=== PATIENT | female | born 1940 | race Caucasian/White ===

== ENCOUNTER 2017-05-03 17:42 | Emergency (ER) | payer OTHER ==
[~2017-05-03] VITALS: Ht 172.7 cm; Wt 89.8 kg
[~2017-05-03 17:42] MED LIST: ALBU0.63 NEB; AZIT500T PO; CARV12.52 PO; CARV3.122 PO; CARV6.252 PO; FLUT1DIS3 INH; HYDR25TA6 PO; LISI-170 PO; LISI1TAB7 PO; LISI40TA PO; MELO-184 PO; METO200T3 PO; PRED5TAB PO; TIOT18CA INH
[2017-05-03] MEDS ORDERED: ONDANSETRON ODT 4 MG ONE (18:26)
[2017-05-03] MEDS ORDERED: ONDANSETRON ODT 4 MG PO ONE (18:30)
[2017-05-03] MEDS ORDERED: HYDR25TA6 PO (19:02)
[2017-05-03] MEDS ORDERED: CARV12.52 PO (19:04)
[2017-05-03 19:21] LABS: BLOOD UREA NITROGEN 24 mg/dL (7-18)
[2017-05-03 19:26] LABS: ASPARTATE AMINO TRANSFERASE 15 U/L (15-37)
[2017-05-03 19:27] LABS: IS PT STATUS REG ER OR PRE ER? YES
[2017-05-03 20:09] VITALS: BP 124/46
== END 2017-05-03 20:12 | disposition home or self-care (01) ==
LOC: ED 20:06
DX: J44.9 Chronic obstructive pulmonary disease, unspecified (principal); R11.0 Nausea; I10 Essential (primary) hypertension; F41.9 Anxiety disorder, unspecified
CPT/HCPCS: 36415; 71010; 80053; 84484; 85025; 93005; 99285; Q0162

== ENCOUNTER 2017-05-26 10:13 | Day surgery (SDC) | payer OTHER ==
[2017-05-23 12:47] VITALS: BP 128/75
[~2017-05-26] VITALS: Ht 172.7 cm; Wt 87.0 kg
[~2017-05-26 10:13] MED LIST changes: +BUPIVACAINE/PF 0.5% ONE; +EPINEPHRINE 1 MG/ML, 1ML ONE; +FLUT12HF3 IH; +NITR100C PO; +ONDA4TAB10 PO; +RANI150T8 PO
[2017-05-26] MEDS ORDERED: PROPOFOL 10 MG/ML, 20ML ONE (10:31)
[2017-05-26] MEDS ORDERED: CEFAZOLIN 1,000 MG ONE (10:31)
[2017-05-26] MEDS ORDERED: DEXAMETHASONE 4 MG/ML, 1ML ONE (10:31)
[2017-05-26] MEDS ORDERED: KETOROLAC 30 MG/1 ML ONE (10:31)
[2017-05-26] MEDS ORDERED: ONDANSETRON 2MG/ML, 2ML ONE (10:31)
[2017-05-26] MEDS ORDERED: GLYCOPYRROLATE 0.2MG/1ML ONE (10:31)
[2017-05-26] MEDS ORDERED: ALBUTEROL SULFATE 200 PUFFS/8.5 GR INH ONE (10:31)
[2017-05-26] MEDS ORDERED: LACTATED RINGERS 1,000 ML IV SCH (10:49)
[2017-05-26 11:07] VITALS: BP 128/75
[2017-05-26] MEDS ORDERED: FENTANYL PF 100 MCG/2ML ONE ×2 (11:53→13:15)
[2017-05-26] MEDS ORDERED: ACETAMINOPHEN 325 MG TABLET PO PRN (12:00)
[2017-05-26] MEDS ORDERED: PROMETHAZINE 25 MG/ML, 1ML IV PRN (12:00)
[2017-05-26] MEDS ORDERED: ONDANSETRON 2MG/ML, 2ML IVPush PRN (12:00)
[2017-05-26] MEDS ORDERED: OXYcodone 5 MG/5 ML ORAL.SOL UDC PO PRN (12:00)
[2017-05-26] MEDS ORDERED: LABETALOL 5MG/ML, 20ML IV PRN (12:00)
[2017-05-26] MEDS ORDERED: HYDROcodone/APAP 7.5-325MG/15ML UDC PO PRN (12:00)
[2017-05-26] MEDS ORDERED: FENTANYL PF 100 MCG/2ML IV PRN (12:00)
[2017-05-26] MEDS ORDERED: hydrALAzine 20 MG/ML, 1ML IV PRN (12:00)
[2017-05-26] MEDS ORDERED: EPHEDRINE 50 MG/ML, 1ML IVPush PRN (12:00)
[2017-05-26] MEDS ORDERED: HYDROmorphone 1 MG/ML, 1ML IV PRN (12:00)
== END 2017-05-26 16:00 | disposition home or self-care (01) ==
LOC: OUT 10:13
PROVIDERS: ATTEND Surgery
DX: K80.10 Calculus of gallbladder with chronic cholecystitis without obstruction (principal); K42.9 Umbilical hernia without obstruction or gangrene; E78.00 Pure hypercholesterolemia, unspecified; J44.9 Chronic obstructive pulmonary disease, unspecified; I10 Essential (primary) hypertension; Z98.890 Other specified postprocedural states; Z72.89 Other problems related to lifestyle; Z87.891 Personal history of nicotine dependence
CPT/HCPCS: 47562; 49585; 88304; J0171; J0690; J1100; J1885; J2405; J2704; J3010; J3490; J7120

== ENCOUNTER 2017-06-02 12:10 | Inpatient (IN) | payer OTHER ==
[~2017-06-02] VITALS: Ht 172.7 cm; Wt 85.8 kg
[~2017-06-02 12:10] MED LIST changes: -BUPIVACAINE/PF 0.5% ONE; -EPINEPHRINE 1 MG/ML, 1ML ONE
[2017-06-02 13:06] LABS: HEMATOCRIT 33.8 % (34.6-47.8); HEMOGLOBIN 11.1 g/dL (11.7-16.4); WHITE BLOOD COUNT 9.7 x10^3/uL (3.4-10)
[2017-06-02 13:18] LABS: ASPARTATE AMINO TRANSFERASE 113 U/L (15-37); BLOOD UREA NITROGEN 18 mg/dL (7-18)
[2017-06-02] MEDS ORDERED: SODIUM CHLORIDE 0.9% 1,000ML IVBOLUS ONE (14:00)
[2017-06-02] MEDS ORDERED: SODIUM CHLORIDE FLUSH 10ML SYR IVF ONE (14:00)
[2017-06-02 14:14] LABS: IS PT STATUS REG ER OR PRE ER? YES
[2017-06-02] MEDS ORDERED: SODIUM CHLORIDE 0.9% 1,000 ML IV SCH (15:24)
[2017-06-02] MEDS ORDERED: ONDANSETRON 2MG/ML, 2ML IVPush PRN (15:30)
[2017-06-02] MEDS ORDERED: hydrALAzine 20 MG/ML, 1ML IV PRN (15:30)
[2017-06-02] MEDS ORDERED: ENALAPRILAT 1.25 MG/ML, 2ML IV PRN (15:30)
[2017-06-02] MEDS ORDERED: OXYcodone IR 5MG TABLET PO PRN (15:30)
[2017-06-02] MEDS ORDERED: DOCUSATE 100 MG CAPSULE PO PRN (15:30)
[2017-06-02] MEDS ORDERED: POLYETHYLENE GLYCOL 17 GM PACKET PO PRN (15:30)
[2017-06-02] MEDS ORDERED: MORPHINE SULFATE 4 MG/ML, 1ML IVPush PRN (15:30)
[2017-06-02] MEDS ORDERED: LABETALOL 5MG/ML, 20ML IVPush PRN (15:30)
[2017-06-02] MEDS ORDERED: ALBUTEROL SULFATE 2.5 MG/3 ML NEB PRN (16:00)
[2017-06-02 16:40] VITALS: BP 141/71
[2017-06-02 19:25] VITALS: BP 125/62
[2017-06-02] MEDS: CARVEDILOL 12.5 MG TABLET PO SCH (19:28)
[2017-06-02] MEDS: IPRATROPIUM 0.5 MG/2.5 ML INHA NPPB SCH (21:00)
[2017-06-03 01:05] VITALS: BP 134/77
[2017-06-03] MEDS: IPRATROPIUM 0.5 MG/2.5 ML INHA NPPB SCH ×2 (03:00→08:56)
[2017-06-03 05:44] LABS: HEMATOCRIT 31.5 % (34.6-47.8); HEMOGLOBIN 10.4 g/dL (11.7-16.4); WHITE BLOOD COUNT 6.1 x10^3/uL (3.4-10)
[2017-06-03 05:57] LABS: BLOOD UREA NITROGEN 13 mg/dL (7-18)
[2017-06-03 06:01] LABS: ASPARTATE AMINO TRANSFERASE 96 U/L (15-37)
[2017-06-03 06:02] LABS: IS PT STATUS REG ER OR PRE ER? NO
[2017-06-03 08:00] VITALS: BP 123/78
[2017-06-03] MEDS: CARVEDILOL 12.5 MG TABLET PO SCH (08:57)
[2017-06-03] MEDS ORDERED: FAMOTIDINE 20 MG TABLET PO SCH (09:00)
[2017-06-03] MEDS ORDERED: SENNA/DOCUSATE TABLET PO SCH (09:00)
== END 2017-06-03 12:48 | disposition home or self-care (01) | DRG 438 ==
LOC: ED 14:39 → 3NE 14:40 → SUATTDRO 15:06 → ED 15:11 → DCLOUNGE 06-03 12:35
PROVIDERS: ADMIT Family Medicine; ATTEND Family Medicine
DX: K85.90 Acute pancreatitis without necrosis or infection, unspecified (principal); N17.0 Acute kidney failure with tubular necrosis; D64.9 Anemia, unspecified; E78.00 Pure hypercholesterolemia, unspecified; E78.5 Hyperlipidemia, unspecified; E86.0 Dehydration; F41.1 Generalized anxiety disorder; I10 Essential (primary) hypertension; I25.10 Atherosclerotic heart disease of native coronary artery without angina pectoris; J44.9 Chronic obstructive pulmonary disease, unspecified; K21.9 Gastro-esophageal reflux disease without esophagitis; Z66 Do not resuscitate; R74.8 Abnormal levels of other serum enzymes; Z90.49 Acquired absence of other specified parts of digestive tract; Z87.891 Personal history of nicotine dependence
CPT/HCPCS: 36415; 71010; 74181; 80053; 80061; 83690; 83735; 84484; 85025; 93005; 99285; J7030

== ENCOUNTER 2017-07-04 20:07 | Inpatient (IN) | payer OTHER ==
[~2017-07-04] VITALS: Ht 172.7 cm; Wt 86.0 kg
[~2017-07-04 20:07] MED LIST changes: -MELO-184 PO; +MELO15TA24 PO; -METO200T3 PO; +METO200T5 PO
[2017-07-04] MEDS ORDERED: SODIUM CHLORIDE FLUSH 10ML SYR IVF ONE (20:30)
[2017-07-04] MEDS ORDERED: PLEASE ENTER HEIGHT AND WEIGHT MC SCH (20:30)
[2017-07-04] MEDS ORDERED: SODIUM CHLORIDE 0.9% 1,000ML IVBOLUS ONE (20:30)
[2017-07-04 20:31] LABS: HEMATOCRIT 31.1 % (34.6-47.8); HEMOGLOBIN 10.3 g/dL (11.7-16.4); WHITE BLOOD COUNT 10.1 x10^3/uL (3.4-10)
[2017-07-04 20:43] LABS: ASPARTATE AMINO TRANSFERASE 17 U/L (15-37); BLOOD UREA NITROGEN 17 mg/dL (7-18)
[2017-07-04 20:58] LABS: IS PT STATUS REG ER OR PRE ER? YES
[2017-07-04] MEDS: HEPARIN 5,000 UNITS/ML, 1ML SQ SCH (23:00)
[2017-07-04] MEDS ORDERED: ACETAMINOPHEN 325 MG TABLET PO PRN (23:00)
[2017-07-04 23:27] VITALS: BP 130/65
[2017-07-04] MEDS ORDERED: ALBUTEROL SULFATE 2.5 MG/3 ML NPPB PRN (23:30)
[2017-07-04] MEDS: ONDANSETRON 2MG/ML, 2ML IVPush PRN (23:37)
[2017-07-04] MEDS: SODIUM CHLORIDE 0.9% 1,000 ML IV SCH (23:43)
[2017-07-05 03:31] VITALS: BP 116/64
[2017-07-05 04:29] LABS: HEMATOCRIT 30.9 % (34.6-47.8); HEMOGLOBIN 10.3 g/dL (11.7-16.4); WHITE BLOOD COUNT 9.4 x10^3/uL (3.4-10)
[2017-07-05 04:38] LABS: BLOOD UREA NITROGEN 18 mg/dL (7-18)
[2017-07-05 06:46] VITALS: BP 130/78
[2017-07-05] MEDS: HEPARIN 5,000 UNITS/ML, 1ML SQ SCH ×2 (07:00→18:05)
[2017-07-05] MEDS: IPRATROPIUM 0.5 MG/2.5 ML INHA NPPB SCH ×3 (07:50→21:00)
[2017-07-05] MEDS: SODIUM CHLORIDE 0.9% 1,000 ML IV SCH (08:51)
[2017-07-05] MEDS: FAMOTIDINE 20 MG TABLET PO SCH (09:00)
[2017-07-05 12:59] VITALS: BP 153/73
[2017-07-05] MEDS: ONDANSETRON 2MG/ML, 2ML IVPush PRN (14:43)
[2017-07-05] MEDS: CARVEDILOL 12.5 MG TABLET PO SCH (18:02)
[2017-07-05] MEDS ORDERED: ALBUTEROL SULFATE 2.5 MG/3 ML NPPB PRN (19:00)
[2017-07-05] MEDS ORDERED: ONDANSETRON 2MG/ML, 2ML IVPush PRN (19:00)
[2017-07-05] MEDS ORDERED: ACETAMINOPHEN 325 MG TABLET PO PRN (19:00)
[2017-07-05 20:07] VITALS: BP 145/74
[2017-07-05] MEDS ORDERED: ALUMINUM/MAG/SIMETHICONE 30 ML UDC PO PRN (20:30)
[2017-07-05] MEDS: LACTOBACILLUS CHEW TABLET PO SCH (21:00)
[2017-07-05] MEDS ORDERED: IPRATROPIUM 0.5 MG/2.5 ML INHA NPPB SCH (21:00)
[2017-07-06 02:27] VITALS: BP 131/74
[2017-07-06 04:49] LABS: HEMATOCRIT 30.9 % (34.6-47.8); HEMOGLOBIN 10.4 g/dL (11.7-16.4); WHITE BLOOD COUNT 6.9 x10^3/uL (3.4-10)
[2017-07-06 05:25] LABS: ASPARTATE AMINO TRANSFERASE 14 U/L (15-37); BLOOD UREA NITROGEN 15 mg/dL (7-18)
[2017-07-06] MEDS: CARVEDILOL 12.5 MG TABLET PO SCH ×2 (05:38→17:23)
[2017-07-06] MEDS: HEPARIN 5,000 UNITS/ML, 1ML SQ SCH ×3 (05:38→22:03)
[2017-07-06 06:40] VITALS: BP 111/67
[2017-07-06] MEDS: IPRATROPIUM 0.5 MG/2.5 ML INHA NPPB SCH ×2 (08:20→19:42)
[2017-07-06] MEDS: PANCRELIPASE 24,000 CAPSULE.DR PO SCH ×3 (09:10→17:23)
[2017-07-06] MEDS: LACTOBACILLUS CHEW TABLET PO SCH ×3 (09:11→22:02)
[2017-07-06] MEDS: FAMOTIDINE 20 MG TABLET PO SCH (11:05)
[2017-07-06 13:12] VITALS: BP 131/76
[2017-07-06 18:42] VITALS: BP 118/63
[2017-07-06] MEDS: LISINOPRIL 10 MG TABLET PO SCH (22:02)
[2017-07-07 01:06] VITALS: BP 121/73
[2017-07-07 04:30] LABS: HEMATOCRIT 31.9 % (34.6-47.8); HEMOGLOBIN 10.4 g/dL (11.7-16.4); WHITE BLOOD COUNT 6.9 x10^3/uL (3.4-10)
[2017-07-07 04:42] LABS: BLOOD UREA NITROGEN 22 mg/dL (7-18)
[2017-07-07 04:45] LABS: TOTAL IRON BINDING CAPACITY 254 mcg/dL (250-450)
[2017-07-07] MEDS: HEPARIN 5,000 UNITS/ML, 1ML SQ SCH ×2 (06:14→15:52)
[2017-07-07] MEDS: CARVEDILOL 12.5 MG TABLET PO SCH ×2 (06:14→17:27)
[2017-07-07 06:16] VITALS: BP 124/57
[2017-07-07 06:39] VITALS: BP 93/56
[2017-07-07] MEDS ORDERED: PANCRELIPASE 24,000 CAPSULE.DR PO SCH (07:00)
[2017-07-07] MEDS: IPRATROPIUM 0.5 MG/2.5 ML INHA NPPB SCH (08:03)
[2017-07-07] MEDS: LACTOBACILLUS CHEW TABLET PO SCH ×2 (08:10→15:53)
[2017-07-07] MEDS: FAMOTIDINE 20 MG TABLET PO SCH (08:10)
[2017-07-07] MEDS: PANCRELIPASE 24,000 CAPSULE.DR PO SCH ×3 (08:10→15:52)
[2017-07-07 08:17] VITALS: BP 121/75
[2017-07-07 08:18] VITALS: BP 114/63
[2017-07-07] MEDS: LISINOPRIL 10 MG TABLET PO SCH (08:22)
[2017-07-07 13:15] VITALS: BP 111/64
[2017-07-07] MEDS ORDERED: LISI-170 PO (17:00)
== END 2017-07-07 19:00 | disposition home or self-care (01) | DRG 683 ==
LOC: ED 21:55 → EDIP 22:20 → 3NW 23:21
PROVIDERS: ADMIT Internal Medicine; ATTEND Hospitalist
DX: N17.0 Acute kidney failure with tubular necrosis (principal); N39.0 Urinary tract infection, site not specified; I95.9 Hypotension, unspecified; J44.9 Chronic obstructive pulmonary disease, unspecified; I95.0 Idiopathic hypotension; G62.9 Polyneuropathy, unspecified; E86.9 Volume depletion, unspecified; E86.0 Dehydration; D64.9 Anemia, unspecified; I10 Essential (primary) hypertension; I25.10 Atherosclerotic heart disease of native coronary artery without angina pectoris; K21.9 Gastro-esophageal reflux disease without esophagitis; E66.9 Obesity, unspecified; F41.9 Anxiety disorder, unspecified; Z79.899 Other long term (current) drug therapy; Z87.891 Personal history of nicotine dependence; Z68.28 Body mass index [BMI] 28.0-28.9, adult; Z90.49 Acquired absence of other specified parts of digestive tract
CPT/HCPCS: 36415; 71020; 80048; 80053; 81001; 82607; 82746; 83540; 83550; 84443; 84484; 85025; 87086; 93005; 94640; 99285; J1644; J2405; J7644; J7030

== ENCOUNTER 2017-08-31 21:15 | Emergency (ER) | payer OTHER ==
[~2017-08-31] VITALS: Ht 172.7 cm; Wt 83.6 kg
[2017-08-31 21:58] LABS: WHITE BLOOD COUNT 8.8 x10^3/uL (3.4-10)
[2017-08-31 22:11] LABS: BLOOD UREA NITROGEN 12 mg/dL (7-18)
[2017-08-31 22:29] LABS: IS PT STATUS REG ER OR PRE ER? YES
[2017-08-31] MEDS ORDERED: ONDANSETRON ODT 4 MG ONE (23:08)
[2017-08-31] MEDS ORDERED: ONDANSETRON ODT 4 MG PO ONE (23:30)
[2017-08-31 23:39] VITALS: BP 134/65
== END 2017-08-31 23:42 | disposition home or self-care (01) ==
LOC: ED 21:52
DX: I11.9 Hypertensive heart disease without heart failure (principal); J44.9 Chronic obstructive pulmonary disease, unspecified; Z90.49 Acquired absence of other specified parts of digestive tract; Z88.8 Allergy status to other drugs, medicaments and biological substances
CPT/HCPCS: 36415; 80048; 82040; 84484; 85025; 93005; 99285; Q0162

== ENCOUNTER 2017-09-02 22:04 | Inpatient (IN) | payer OTHER ==
[~2017-09-02] VITALS: Ht 172.7 cm; Wt 82.4 kg
[2017-09-02 22:51] LABS: HEMATOCRIT 34.9 % (34.6-47.8); HEMOGLOBIN 11.4 g/dL (11.7-16.4); WHITE BLOOD COUNT 7.6 x10^3/uL (3.4-10)
[2017-09-02 23:03] LABS: ASPARTATE AMINO TRANSFERASE 15 U/L (15-37); BLOOD UREA NITROGEN 11 mg/dL (7-18)
[2017-09-02 23:08] LABS: IS PT STATUS REG ER OR PRE ER? YES
[2017-09-02] MEDS ORDERED: SODIUM CHLORIDE 0.9% 1,000 ML IV ONE (23:44)
[2017-09-03] MEDS ORDERED: NITROGLYCERIN 0.4 MG/SPRAY SL PRN
[2017-09-03] MEDS ORDERED: morphine SULFATE 10 MG/ML, 1ML IVPush PRN
[2017-09-03] MEDS ORDERED: HYDROmorphone 2 MG/ML, 1ML IVPush PRN
[2017-09-03] MEDS ORDERED: hydrALAzine 20 MG/ML, 1ML IVPush PRN
[2017-09-03] MEDS ORDERED: LORazepam 2 MG/ML, 1ML IVPush PRN
[2017-09-03] MEDS ORDERED: NITROGLYCERIN 0.4 MG BOTTLE (25 TABS) SL PRN
[2017-09-03] MEDS ORDERED: ACETAMINOPHEN 325 MG TABLET PO PRN
[2017-09-03] MEDS ORDERED: ONDANSETRON 2MG/ML, 2ML IVPush PRN ×2
[2017-09-03] MEDS ORDERED: ALBUTEROL SULFATE 2.5 MG/3 ML NEB PRN
[2017-09-03 00:12] LABS: IS PT STATUS REG ER OR PRE ER? YES
[2017-09-03] MEDS ORDERED: ALBUTEROL SULFATE 2.5 MG/3 ML NPPB PRN (00:16)
[2017-09-03 00:34] VITALS: BP 171/75
[2017-09-03 02:44] LABS: IS PT STATUS REG ER OR PRE ER? NO
[2017-09-03 03:30] VITALS: BP 130/65
[2017-09-03] MEDS ORDERED: ASPIRIN 325 MG TABLET EC PO SCH (06:00)
[2017-09-03 06:12] LABS: IS PT STATUS REG ER OR PRE ER? NO
[2017-09-03] MEDS ORDERED: IPRATROPIUM 0.5 MG/2.5 ML INHA NPPB SCH (07:00)
[2017-09-03 08:01] VITALS: BP 134/72
[2017-09-03] MEDS ORDERED: LISINOPRIL 20 MG TABLET PO SCH (09:00)
[2017-09-03] MEDS ORDERED: FAMOTIDINE 20 MG/2 ML IVPush SCH (09:00)
[2017-09-03] MEDS ORDERED: CARVEDILOL 12.5 MG TABLET PO SCH (09:00)
[2017-09-03] MEDS ORDERED: SODIUM CHLORIDE FLUSH 10ML SYR IVF SCH (09:00)
[2017-09-03] MEDS ORDERED: REGADENOSON 0.4 MG/5 ML SYRINGE ONE (09:46)
== END 2017-09-03 15:00 | disposition home or self-care (01) | DRG 392 ==
LOC: ED 22:48 → EDIP 23:52 → 5SO 09-03 00:14 → DCLOUNGE 09-03 14:54
PROVIDERS: ADMIT Family Medicine; ATTEND Family Medicine
DX: K21.9 Gastro-esophageal reflux disease without esophagitis (principal); J44.9 Chronic obstructive pulmonary disease, unspecified; I25.10 Atherosclerotic heart disease of native coronary artery without angina pectoris; F17.200 Nicotine dependence, unspecified, uncomplicated; I10 Essential (primary) hypertension; Z90.49 Acquired absence of other specified parts of digestive tract
CPT/HCPCS: 36415; 71010; 78452; 80053; 80061; 83690; 84484; 85025; 93005; 93017; J2785; A9502; C9898

== ENCOUNTER → 2017-09-12 | Outpatient (CLI) | payer OTHER | END | disposition home or self-care (01) | LOC: CVU 09:23 | PROVIDERS: ATTEND Family Medicine | DX: I08.0 Rheumatic disorders of both mitral and aortic valves (principal); J44.9 Chronic obstructive pulmonary disease, unspecified; Z99.81 Dependence on supplemental oxygen | CPT/HCPCS: 93306 ==

== ENCOUNTER 2018-01-04 20:41 | Emergency (ER) | payer OTHER ==
[~2018-01-04] VITALS: Ht 172.7 cm; Wt 79.5 kg
[~2018-01-04 20:41] MED LIST changes: +METO200T47 PO; -METO200T5 PO
[2018-01-04] MEDS ORDERED: HYDR25TA6 PO (20:59)
[2018-01-04] MEDS ORDERED: LISI-167 PO (20:59)
[2018-01-04 21:17] LABS: BASOPHILS # (AUTO) 0.05 x10^3/uL (0-0.1); BASOPHILS % (AUTO) 1 % (0-1); EOSINOPHILS # (AUTO) 0.52 x10^3/uL (0-0.4); EOSINOPHILS % (AUTO) 7 % (1-7); LYMPHOCYTES # (AUTO) 2.36 x10^3/uL (1-3.4); LYMPHOCYTES % (AUTO) 29 % (22-44); MD NO; MEAN CORPUSCULAR HEMOGLOBIN 31.1 pg (27.0-34.8); MEAN CORPUSCULAR HGB CONC 33.4 g/dL (32.4-35.8); MEAN PLATELET VOLUME 7.4 fL (7.4-10.4); MONOCYTES # (AUTO) 0.61 x10^3/uL (0.2-0.8); MONOCYTES % (AUTO) 8 % (2-9); NEUTROPHILS % (AUTO) 56 % (42-75); PLATELET COUNT 421 x10^3/uL (130-400); RED BLOOD COUNT 3.71 x10^6/uL (3.82-5.3); RED CELL DISTRIBUTION WIDTH 14.4 % (9.6-15.2)
[2018-01-04 21:27] LABS: ALBUMIN 3.9 g/dL (3.4-5.0); ANION GAP 3 mmol/L (5-15); CHLORIDE 101 mmol/L (98-107)
[2018-01-04] MEDS ORDERED: SODIUM CHLORIDE 0.9% 1,000ML IVBOLUS ONE (21:30)
[2018-01-04 21:31] LABS: TROPONIN I < 0.015 ng/mL (0.000-0.045)
[2018-01-04 23:05] VITALS: BP 162/74
== END 2018-01-04 23:08 | disposition home or self-care (01) ==
LOC: ED 22:00
DX: I10 Essential (primary) hypertension (principal); K21.9 Gastro-esophageal reflux disease without esophagitis; J44.9 Chronic obstructive pulmonary disease, unspecified; Z87.891 Personal history of nicotine dependence; I25.10 Atherosclerotic heart disease of native coronary artery without angina pectoris
CPT/HCPCS: 36415; 80048; 82040; 84484; 85025; 93005; 96360; 99285; J7030

== ENCOUNTER 2018-10-29 13:56 | Emergency (ER) | payer MEDICARE ==
[~2018-10-29] VITALS: Ht 172.7 cm; Wt 80.0 kg
[~2018-10-29 13:56] MED LIST changes: +ALBUTEROL MDI; +CARVEDILOL; +FLUTICASONE; +LISI-167 PO; +METOPROLOL; +RANI150T23 PO; -RANI150T8 PO
--- NOTE | 2018-10-29 14:16 | NUR ---
BIB [facility]. C/O N/V/D x 1 hour. Placed on NIBP and pulse ox. Wears 3L NC at home at all times. Hx COPD. Will continue to monitor.
[2018-10-29] MEDS ORDERED: ASPIRIN 81 MG TABLET CHEW ONE (14:56)
[2018-10-29 15:19] LABS: MD YES; MEAN CORPUSCULAR HGB CONC 33.9 g/dL (32.4-35.8); MEAN CORPUSCULAR VOLUME 91.4 fL (80-100); MEAN PLATELET VOLUME 7.6 fL (7.4-10.4); PLATELET COUNT 372 x10^3/uL (130-400); RED BLOOD COUNT 3.95 x10^6/uL (3.82-5.3); RED CELL DISTRIBUTION WIDTH 13.3 % (9.6-15.2)
--- NOTE | 2018-10-29 15:22 | NUR ---
UA sent to lab. No other needs.
[2018-10-29 15:29] LABS: ALANINE AMINOTRANSFERASE 21 U/L (12-78); ALBUMIN 3.9 g/dL (3.4-5.0); ANION GAP 6 mmol/L (5-15); CALCIUM 9.1 mg/dL (8.5-10.1); CHLORIDE 97 mmol/L (98-107)
[2018-10-29 15:34] LABS: ALKALINE PHOSPHATASE 86 U/L (45-117); BILIRUBIN,TOTAL 0.3 mg/dL (0.2-1.0); CREATININE 1.48 mg/dL (0.55-1.02); TOTAL PROTEIN 7.6 g/dL (6.4-8.2); TROPONIN I < 0.015 ng/mL (0.000-0.045)
[2018-10-29 15:37] LABS: MICROSCOPIC AUTO
[2018-10-29 15:41] LABS: CULTURE INDICATED? YES
[2018-10-29] MEDS ORDERED: ASPIRIN 81 MG TABLET CHEW PO ONE (16:00)
[2018-10-29 16:01] LABS: BAND#(MANUAL) 0.68 x10^3/uL; BANDS%(MANUAL) 3 % (0-7); EOS#(MANUAL) 0.46 x10^3/uL (0.0-0.4); EOS% (MANUAL) 2 % (1-7); LYMPH#(MANUAL) 1.37 x10^3/uL (1-3.4); LYMPHS% (MANUAL) 6 % (22-44); MONOS#(MANUAL) 1.14 x10^3/uL (0.3-2.7); MONOS% (MANUAL) 5 % (2-9); SEG#(MANUAL) 19.15 x10^3/uL (1.8-6.8); SEGS% (MANUAL) 84 % (42-75)
[2018-10-29 16:04] LABS: <PLATELET ESTIMATE> ADEQUATE; <PLT MORPHOLOGY> NORMAL PLT MORPH; <RBC MORPHOLOGY> NORMAL
[2018-10-29] MEDS ORDERED: CEFTRIAXONE PMX 1GM/50ML 50 ML ONE (16:06)
[2018-10-29] MEDS ORDERED: CEFTRIAXONE PMX 1GM/50ML 50 ML IV ONE (16:30)
--- NOTE | 2018-10-29 17:14 | NUR ---
TASK RN. FIRST CONTACT WITH PT. Patient/Caregiver given discharge instructions and they have confirmed that they understand the instructions. Patient ambulatory with steady gait. PIV D/C WITH TIP INTACT. PRESSURE DRESSING APPLIED. PT LEFT WITH ALL PERSONAL BELONGINGS.
[2018-10-29 17:15] VITALS: BP 113/56
== END 2018-10-29 17:19 | disposition home or self-care (01) ==
LOC: ED 14:38
DX: N39.0 Urinary tract infection, site not specified (principal); R11.2 Nausea with vomiting, unspecified; R19.7 Diarrhea, unspecified; I11.9 Hypertensive heart disease without heart failure; J44.9 Chronic obstructive pulmonary disease, unspecified; F41.1 Generalized anxiety disorder; E78.00 Pure hypercholesterolemia, unspecified; K21.9 Gastro-esophageal reflux disease without esophagitis; I25.10 Atherosclerotic heart disease of native coronary artery without angina pectoris; E66.9 Obesity, unspecified; Z68.26 Body mass index [BMI] 26.0-26.9, adult
CPT/HCPCS: 36415; 71045; 80053; 81001; 84484; 85025; 87077; 87086; 93005; 96365; 99284; J0696

== ENCOUNTER 2019-05-21 08:53 | Outpatient (CLI) | payer MEDICARE | END 2019-05-21 23:59 | disposition home or self-care (01) | LOC: CVU 08:53 | PROVIDERS: ATTEND Family Medicine | DX: M79.605 Pain in left leg (principal); M79.604 Pain in right leg; J44.9 Chronic obstructive pulmonary disease, unspecified; I10 Essential (primary) hypertension; I25.10 Atherosclerotic heart disease of native coronary artery without angina pectoris; K21.9 Gastro-esophageal reflux disease without esophagitis | CPT/HCPCS: 93922; 93925 ==

== ENCOUNTER → 2019-11-09 | Outpatient (CLI) | payer MEDICARE ==
[~2019-11-09] MED LIST changes: +CLON0.1T22 PO; +LISI1TAB20 PO; -LISI1TAB7 PO; +PANT40TA5 PO; +RANI-467 PO; -RANI150T23 PO; +SERT25TA3 PO
== END | disposition home or self-care (01) ==
LOC: CARD 09:23
PROVIDERS: ATTEND Family Medicine
DX: I08.0 Rheumatic disorders of both mitral and aortic valves (principal); I11.9 Hypertensive heart disease without heart failure; J44.9 Chronic obstructive pulmonary disease, unspecified; E66.9 Obesity, unspecified; Z87.891 Personal history of nicotine dependence
CPT/HCPCS: 93306

== ENCOUNTER 2021-02-10 08:44 | Emergency (ER) | payer MEDICARE ==
[~2021-02-10] VITALS: Ht 172.7 cm; Wt 85.6 kg
[~2021-02-10 08:44] MED LIST changes: -LISI40TA PO; +LISI40TA9 PO; -PANT40TA5 PO; +PANT40TA6 PO; +SERT-331 PO; -SERT25TA3 PO
--- NOTE | 2021-02-10 08:59 | NUR ---
PT BIBA FOR INCREASED WEAKNESS OVER THE LAST COUPLE WEEKS. PT C/O N/D AND CONSTIPATION LAST NIGHT. PT STATES SHE "DOES NOT FEEL NORMAL, MAYBE THIS IS HOW IT'S GOING TO BE NOW." PT CONNECTED TO MONITORS, CHANGED INTO GOWN. CALL LIGHT WITHIN REACH. NO NEEDS AT THIS TIME
[2021-02-10] MEDS ORDERED: ONDANSETRON 2MG/ML, 2ML ONE (09:16)
[2021-02-10] MEDS ORDERED: SODIUM CHLORIDE FLUSH 10ML SYR IVF ONE (09:30)
[2021-02-10] MEDS ORDERED: ONDANSETRON 2MG/ML, 2ML IVPush ONE (09:30)
[2021-02-10 09:31] LABS: MICROSCOPIC AUTO
[2021-02-10 09:35] LABS: BASOPHILS % (AUTO) 1 % (0-1); EOSINOPHILS % (AUTO) 2 % (1-7); LYMPHOCYTES % (AUTO) 21 % (22-44); MEAN CORPUSCULAR HEMOGLOBIN 31.2 pg (27.0-34.8); MEAN CORPUSCULAR HGB CONC 33.3 g/dL (32.4-35.8); MEAN PLATELET VOLUME 7.8 fL (7.4-10.4); MONOCYTES % (AUTO) 8 % (2-9); NEUTROPHILS % (AUTO) 69 % (42-75); PLATELET COUNT 355 x10^3/uL (130-400); RED BLOOD COUNT 3.71 x10^6/uL (3.82-5.3); RED CELL DISTRIBUTION WIDTH 13.4 % (9.6-15.2)
[2021-02-10 09:36] LABS: MD NO
[2021-02-10 09:49] LABS: ALBUMIN 3.5 g/dL (3.4-5.0); ANION GAP 2 mmol/L (5-15); CALCIUM 9.2 mg/dL (8.5-10.1); CHLORIDE 100 mmol/L (98-107)
[2021-02-10 09:55] LABS: ALANINE AMINOTRANSFERASE 27 U/L (12-78); ALKALINE PHOSPHATASE 144 U/L (45-117); BILIRUBIN,TOTAL 0.4 mg/dL (0.2-1.0); CREATININE 1.02 mg/dL (0.55-1.02); TOTAL PROTEIN 7.4 g/dL (6.4-8.2); TROPONIN I < 0.015 ng/mL (0.000-0.045)
[2021-02-10 10:01] LABS: T4 (THYROXINE) 9.4 mcg/dL (4.8-13.9)
--- NOTE | 2021-02-10 10:03 | NUR ---
PT SITTING CALMLY ON GURNEY, STATES SHE HAS NO PAIN. NADN/VSS. CALL LIGHT WITHIN REACH. NO NEEDS AT THIS TIME
--- NOTE | 2021-02-10 10:08 | NUR ---
PT TO CT
[2021-02-10] MEDS ORDERED: OMNIPAQUE 350 MG/ML, 100ML BOTTLE ONE (10:17)
--- NOTE | 2021-02-10 10:20 | NUR ---
PT BACK FROM CT
--- NOTE | 2021-02-10 11:02 | NUR ---
PT SITTING ON GURNEY CALMLY, APPROPRIATE TOWARDS STAFF. NADN/VSS. NO NEEDS AT THIS TIME.
[2021-02-10 11:32] VITALS: BP 145/85
--- NOTE | 2021-02-10 11:35 | NUR ---
Patient given discharge instructions and they have confirmed that they understand the instructions. Patient ambulatory with steady gait.
== END 2021-02-10 11:47 | disposition home or self-care (01) ==
LOC: ED 09:47
DX: M54.31 Sciatica, right side (principal); R07.89 Other chest pain; R06.02 Shortness of breath; R53.1 Weakness; R10.9 Unspecified abdominal pain; R94.31 Abnormal electrocardiogram [ECG] [EKG]; K59.00 Constipation, unspecified; J44.9 Chronic obstructive pulmonary disease, unspecified; K21.9 Gastro-esophageal reflux disease without esophagitis; I95.9 Hypotension, unspecified; E78.00 Pure hypercholesterolemia, unspecified; I10 Essential (primary) hypertension; Z90.89 Acquired absence of other organs; Z90.49 Acquired absence of other specified parts of digestive tract
CPT/HCPCS: 36415; 71045; 74177; 80053; 81001; 83690; 83735; 83880; 84436; 84443; 84484; 85025; 87086; 93005; 96374; 99285; J2405; Q9967